=== PATIENT | female | born 1975 | race Caucasian/White ===

== ENCOUNTER 2017-05-22 11:44 | Emergency (ER) | payer MEDICAID ==
[~2017-05-22] VITALS: Ht 157.5 cm; Wt 49.5 kg
[~2017-05-22 11:44] MED LIST: DIPH25CA6 PO; PRED50TA PO; [UNRECOGNIZED DRUG - REMARK]
[2017-05-22 11:48] VITALS: Ht 157.5 cm; Wt 49.5 kg
[2017-05-22 13:26] LABS: BASOPHILS % 0.6 % (0.0-2.0); HEMATOCRIT 36.4 % (37.0-47.0); HEMOGLOBIN 12.3 g/dl (12.0-16.0); LYMPHOCYTES # 1.2 10^3/ul (0.8-2.9); LYMPHOCYTES % 18.3 % (15.0-51.0); MEAN CORPUSCULAR HEMOGLOBIN 28.5 pg (29.0-33.0); MEAN CORPUSCULAR HGB CONC 33.8 g/dl (32.0-37.0); MEAN CORPUSCULAR VOLUME 84.3 fl (82.0-101.0); MEAN PLATELET VOLUME 10.8 fl (7.4-10.4); MONOCYTE # 0.4 10^3/ul (0.3-0.9); MONOCYTES % 6.5 % (0.0-11.0); NEUTROPHILS % 74.3 % (39.0-77.0); PLATELET COUNT 223 10^3/UL (140-415); RED BLOOD COUNT 4.32 10^6/ul (4.20-5.40); RED CELL DISTRIBUTION WIDTH 13.1 % (11.5-14.5); WHITE BLOOD COUNT 6.8 10^3/ul (4.8-10.8)
[2017-05-22 13:32] LABS: ADD UMIC YES; UR ASCORBIC ACID 40 mg/dL (NEGATIVE); UR BACTERIA FEW /HPF (NONE SEEN); UR BILIRUBIN (Dip) NEGATIVE (NEGATIVE); UR BLOOD (Dip) NEGATIVE (NEGATIVE); UR CLARITY SLIGHTLY CLOUDY (CLEAR); UR COLOR YELLOW (YELLOW); UR GLUCOSE (Dip) NEGATIVE (NEGATIVE); UR KETONES (Dip) 2+ mg/dL (NEGATIVE); UR LEUKOCYTE ESTERASE (Dip) NEGATIVE Leu/ul (NEGATIVE); UR MUCUS MANY /HPF (NONE SEEN); UR NITRITE (Dip) NEGATIVE (NEGATIVE); UR RBC 2 /HPF (0-5); UR SPECIFIC GRAVITY (Dip) 1.032 (1.003-1.030); UR SQUAMOUS EPITHELIAL CELL FEW /HPF (FEW); UR TOTAL PROTEIN (Dip) 1+ mg/dl (NEGATIVE); UR UROBILINOGEN (Dip) NEGATIVE (NEGATIVE)
[2017-05-22 13:47] LABS: ANION GAP 17 (8-16); BLOOD UREA NITROGEN 16 mg/dl (7-20); CALCIUM 9.6 mg/dl (8.4-10.2); CARBON DIOXIDE 25 mmol/L (21-31); CHLORIDE 107 mmol/L (97-110); GLUCOSE 80 mg/dl (70-220); POTASSIUM 3.7 mmol/L (3.5-5.1); SODIUM 145 mmol/L (135-144)
[2017-05-22 14:00] LABS: TROPONIN-I < 0.012 ng/ml (0.00-0.12)
--- NOTE | 2017-05-22 14:09 | RADRPT ---
PROCEDURE: Chest x-ray CLINICAL INDICATION: Chest pain TECHNIQUE: Chest single view COMPARISON: None FINDINGS: The heart is normal in size. The pulmonary vessels are normal in caliber. The lungs are clear. Th e costophrenic angles are sharp. The visualized bony thorax is unremarkable. IMPRESSION: No acute cardiopulmonary disease. RPTAT: HH .Yung Gong MD, Date Time Electronically viewed and signed by .Yung Gong MD, MD on 05/22/2017 14:08 .W/
--- NOTE | 2017-05-22 14:18 | ERD ---
ER Documentation Chief Complaint Chief Complaint C/O CP/BACK PAIN AND DIZZINESS ON AND OFF X 1 WK. STATES SHE HAS ANXIETY HPI This is a 41-year-old female presenting to emergency department for chest pain, heart palpitations, back pain and dizziness 1 week. Patient states she has had increased stress at home and believes he has anxiety. Patient states she went yesterday to her primary care provider and a "thorough physical was done" and that everything was normal according to patient. Patient still believes she has anxiety and is requesting medication. No cough, shortness of breath or difficulty breathing. No fevers or chills. No chest pressure. ROS All systems reviewed and are negative except as per history of present illness. Medications Home Meds Active Scripts Diphenhydramine Hcl* (Diphenhydramine Hcl*) 25 Mg Capsule, 25 MG PO Q6 Y for ITCHING, #30 CAP Prov:SAMMY LÓPEZ PA-C 04/26/15 Prednisone* (Prednisone*) 50 Mg Tablet, 50 MG PO DAILY, #5 TAB Prov:SAMMY LÓPEZ PA-C 04/26/15 Reported Medications [Unk Med In White Bot] No Conflict Check 05/16/10 Allergies Allergies: Coded Allergies: No Known Allergy (Verified , 05/22/17) PMhx/Soc Medical and Surgical Hx: pt denies Medical Hx, pt denies Surgical Hx History of Surgery: No Anesthesia Reaction: No Hx Neurological Disorder: No Hx Respiratory Disorders: No Hx Cardiac Disorders: No Hx Psychiatric Problems: No Hx Miscellaneous Medical Probl: No Hx Alcohol Use: No Hx Substance Use: No Hx Tobacco Use: No Smoking Status: Never smoker Physical Exam Vitals Vital Signs Date Time Temp Pulse Resp B/P Pulse Ox O2 Delivery O2 Flow Rate FiO2 05/22/17 11:48 99.1 114 22 120/84 97 Physical Exam Const: Alert, smiling, cooperative Head: Atraumatic Eyes: Normal Conjunctiva ENT: Normal External Ears, Nose and Mouth. Neck: Full range of motion..~ No meningismus. Resp: Clear to auscultation bilaterally. No wheezing, rhonchi or crackles. No stridor or labored breathing. No intercostal retractions. Cardio: Regular rate and rhythm, no murmurs Abd: Soft, non tender, non distended. Normal bowel sounds Skin: No petechiae or rashes Back: No midline or flank tenderness Ext: No cyanosis, or edema Neur: Awake and alert Psych: Normal Mood and Affect Result Diagram: 05/22/17 1310 05/22/17 1310 Results 24 hrs Laboratory Tests Test 05/22/17 13:10 White Blood Count 6.810^3/ul Red Blood Count 4.3210^6/ul Hemoglobin 12.3g/dl Hematocrit 36.4% Mean Corpuscular Volume 84.3fl Mean Corpuscular Hemoglobin 28.5pg Mean Corpuscular Hemoglobin Concent 33.8g/dl Red Cell Distribution Width 13.1% Platelet Count 79351^3/UL Mean Platelet Volume 10.8fl Neutrophils % 74.3% Lymphocytes % 18.3% Monocytes % 6.5% Eosinophils % 0.0% Basophils % 0.6% Nucleated Red Blood Cells % 0.0/100WBC Neutrophils # 5.010^3/ul Lymphocytes # 1.210^3/ul Monocytes # 0.410^3/ul Eosinophils # 0.010^3/ul Basophils # 0.010^3/ul Nucleated Red Blood Cells # 0.010^3/ul Urine Color YELLOW Urine Clarity SLIGHTLY CLOUDY Urine pH 5.0 Urine Specific [place] 1.032 Urine Ketones 2+mg/dL Urine Nitrite NEGATIVEmg/dL Urine Bilirubin NEGATIVEmg/dL Urine Urobilinogen NEGATIVEmg/dL Urine Leukocyte Esterase NEGATIVELeu/ul Urine Microscopic RBC 2/HPF Urine Microscopic WBC 1/HPF Urine Squamous Epithelial Cells FEW/HPF Urine Bacteria FEW/HPF Urine Mucus MANY/HPF Urine Hemoglobin NEGATIVEmg/dL Urine Glucose NEGATIVEmg/dL Urine Total Protein 1+mg/dl Sodium Level 145mmol/L Potassium Level 3.7mmol/L Chloride Level 107mmol/L Carbon Dioxide Level 25mmol/L Anion Gap 17 Blood Urea Nitrogen 16mg/dl Creatinine 0.70mg/dl Glucose Level 80mg/dl Calcium Level 9.6mg/dl Troponin I < 0.012ng/ml Current Medications Medications (Trade) Dose Ordered Sig/Gavin Route PRN Reason Start Time Stop Time Status Last Admin Dose Admin Lorazepam (Ativan) 0.5 mg ONCE ONCE PO 05/22/17 14:30 05/22/17 14:31 DC 05/22/17 15:15 Procedures/[place] [id number] Radiology Main Line: [phone] DIAGNOSTIC IMAGING REPORT Patient: RICKY HODGES : 1975 Age: 41 Sex: F MR #: [id number] [facility] #: [id number] DOS: 05/22/17 1306 Ordering MD: SONIA MAN NP Location: [facility]TE Room/Bed: PROCEDURE: Chest x-ray CLINICAL INDICATION: Chest pain TECHNIQUE: Chest single view COMPARISON: None FINDINGS: The heart is normal in size. The pulmonary vessels are normal in caliber. The lungs are clear. The costophrenic angles are sharp. The visualized bony thorax is unremarkable. IMPRESSION: No acute cardiopulmonary disease. EKG: As interpreted by myself and Dr. Galicia Rate/Rhythm: Sinus tachycardia with heart rate 106 bpm QRS, ST, T-waves: No changes consistent w/ acute ischemia Impression: No evidence of ischemia or arrhythmia MDM: This is a 41-year-old female presenting to emerge department for chest pain , back pain, intermittent dizziness 1 week. Patient states she believes she has anxiety. EKG shows sinus tachycardia with heart rate 106 bpm. Negative for STEMI. CBC shows no significant anemia or infection. BMP shows no significant electrolyte imbalance. Troponin is negative. Chest x-ray reviewed by radiologist as no acute cardiopulmonary disease. Patient given Ativan p.o. while in the ED. Upon reassessment, patient states she is feeling better. Differential diagnosis includes but not limited to pneumonia, anxiety, bronchitis, pleurisy, costochondritis, gastroesophageal reflux,musculoskeletal chest pain and esophageal spasm. Low suspicion for acute coronary syndrome, pulmonary embolism, pneumothorax, aortic dissection and myocardial infarction. Patient is appropriate for outpatient management and will be discharged as stable. Instructed patient to follow up with primary care provider in the next 24-48 hours. Return to ED for worsening pain, abdominal pain, vomiting, diarrhea , high fever or any new or worsening symptoms. Patient verbalizes understanding. All questions answered at discharge. Disclaimer: Inadvertent spelling and grammatical errors are likely due to EHR/ dictation software use and do not reflect on the overall quality of patient care. Also, please note that the electronic time recorded on this note does not necessarily reflect the actual time of the patient encounter. Departure Diagnosis: Primary Impression: Anxiety Condition: Stable Patient Instructions: Your Body's Response to Anxiety, Anxiety Reaction Referrals: [facility] () Usted se nolasco hecho un examen mdico de control que le indica que no est en deborah condicin que requiera tratamiento urgente en el Departamento de Emergencia. Un estudio ms profundo y el tratamiento de conn condicin pueden esperar sin ningn riesgo hasta que usted sea atendida/o en el consultorio de conn mdico o deborah cl ricky. Es responsabilidad suya arreglar deborah negin para el seguimiento del susan. MANEJO DE CONDICIONES NO URGENTES EN EL FUTURO 1) Si usted tiene un mdico de atencin primaria: Usted debera llamar a conn mdico de atencin primaria antes de venir al departamento de emergencia. Despus de las horas de consultorio, conn doctor o conn asociado/a est disponible por telfono. El mdico o enfermero de skyler en el servicio telefnico puede asesorarle por ceci medio para atender el problema, o susan contrario se puede programar deborah negin. 2) Si usted no tiene un mdico de atencin primaria: Llame al mdico o clnica de referencia que aparece abajo blessing las horas de consultorio para hacer deborah negin para que le vean. CLINICAS: [facility] [phone] [facility] [phone] [facility] [phone] [facility] [phone] [facility] [phone] [facility]. [phone] [address] [facility] () Usted se nolasco hecho un examen mdico de control que le indica que no est en deborah condicin que requiera tratamiento urgente en el Departamento de Emergencia. Un estudio ms profundo y el tratamiento de conn condicin pueden esperar sin ningn riesgo hasta que usted sea atendida/o en el consultorio de conn mdico o deborah cl ricky. Es responsabilidad suya arreglar deborah negin para el seguimiento del susan. MANEJO DE CONDICIONES NO URGENTES EN EL FUTURO 1) Si usted tiene un mdico de atencin primaria: Usted debera llamar a conn mdico de atencin primaria antes de venir al departamento de emergencia. Despus de las horas de consultorio, conn doctor o conn asociado/a est disponible por telfono. El mdico o enfermero de skyler en el servicio telefnico puede asesorarle por ceci medio para atender el problema, o susan contrario se puede programar deborah negin. 2) Si usted no tiene un mdico de atencin primaria: Llame al mdico o condado institucions de referencia que aparece abajo blessing las horas de consultorio para hacer deborah negin para que le vean. SI USTED NO PUEDE PAGAR PARA CONSTANCE UN MEDICO puede ir a: [facility] [address] [place] [address] [facility] [address] [place] [address] [facility] [address] [place] [address] [facility] [address] [place] [place], [place] [id number] Additional Instructions: Llame al doctor MAANA y luciano deborah NEGIN PARA DENTRO DE 2-3 BOOTHE.Dgale a la secretaria que nosotros le instruimos hacer esta negin.Avise o llame si conn condicin se empeora antes de la negin. Regresa aqui si peor o no mejor. Vuelva a Ed para cualquier fiebre irving, dolor en el pecho, dificultad para respirar, respiracin entrecortada, sibilancias, vmitos, diarrea, dolor abdominal o cualquier sntoma nuevo o empeoramiento. SONIA ABRAHAM NP May 22, 2017 14:18
[2017-05-22] MEDS ORDERED: LORAZEPAM 0.5 MG TAB PO ONE (14:30)
== END 2017-05-22 15:21 | disposition home or self-care (01) ==
LOC: FTE 11:44
DX: F41.9 Anxiety disorder, unspecified (principal)
CPT/HCPCS: 36415; 71010; 80048; 81001; 84484; 85025; 93005; Z7502; Z7610

== ENCOUNTER 2017-05-28 09:16 | Emergency (ER) | payer MEDICAID ==
[~2017-05-28] VITALS: Ht 157.5 cm; Wt 49.5 kg
[2017-05-28 09:19] VITALS: Ht 157.5 cm; Wt 49.5 kg
[2017-05-28] MEDS ORDERED: BEN25 PO (11:00)
--- NOTE | 2017-05-28 18:15 | ERD ---
ER Documentation Chief Complaint Chief Complaint has been having insomnia x 1 week, feels weak HPI This is a 41-year-old female who presents to the emergency department today complaining of difficulty sleeping for the past several days. Patient states that she did not sleep for 3 days and then slept 1 night and again did not sleep last night. She has not taken any medication. She wants to know why she is not sleeping. Denies any headaches, dizziness, blurred vision, chest pain or shortness of breath. ROS All systems reviewed and are negative except as per history of present illness. Medications Home Meds Active Scripts Diphenhydramine Hcl* (Benadryl*) 25 Mg Cap, 25 MG PO Q6, #30 CAP Prov:LIVIER GAMBOA PA-C 05/28/17 Diphenhydramine Hcl* (Diphenhydramine Hcl*) 25 Mg Capsule, 25 MG PO Q6 Y for ITCHING, #30 CAP Prov:SAMMY LÓPEZ PA-C 04/26/15 Prednisone* (Prednisone*) 50 Mg Tablet, 50 MG PO DAILY, #5 TAB Prov:SAMMY LÓPEZ PA-C 04/26/15 Reported Medications [Unk Med In White Bot] No Conflict Check 05/16/10 Allergies Allergies: Coded Allergies: Penicillins (Verified Allergy, Intermediate, RASH, 05/28/17) PMhx/Soc Medical and Surgical Hx: pt denies Medical Hx, pt denies Surgical Hx History of Surgery: No Anesthesia Reaction: No Hx Neurological Disorder: No Hx Respiratory Disorders: No Hx Cardiac Disorders: No Hx Psychiatric Problems: No Hx Miscellaneous Medical Probl: No Hx Alcohol Use: No Hx Substance Use: No Hx Tobacco Use: No Smoking Status: Never smoker Physical Exam Vitals Vital Signs Date Time Temp Pulse Resp B/P Pulse Ox O2 Delivery O2 Flow Rate FiO2 05/28/17 09:19 97.6 80 18 121/70 100 Physical Exam Const: NAD Head: Atraumatic Eyes: Normal Conjunctiva ENT: Normal External Ears, Nose and Mouth. Neck: Full range of motion..~ No meningismus. Resp: Clear to auscultation bilaterally Cardio: Regular rate and rhythm, no murmurs Abd: Soft, non tender, non distended. Normal bowel sounds Skin: No petechiae or rashes Back: No midline or flank tenderness Ext: No cyanosis, or edema Neur: Awake and alert Psych: Normal Mood and Affect Procedures/MDM This is a 41-year-old female who presents to the emergency department today with complaints of insomnia for the past couple of days. Patient is afebrile and otherwise well-appearing. Her vital signs are stable and within normal limits. Upon review of patient's medical record she was seen on May 22, 2017 for reports of feeling his heart palpitations. Patient had admitted that she had had a physical at a clinic prior to that. Upon patient's last visit here to the emergency department 6 days ago patient had laboratory workup and EKG and a chest x-ray that were all negative. At this time I do not feel the patient requires further workup or imaging. I explained to the patient she needed to follow back up with her primary care doctor for referral to outpatient counseling or psychiatry. Patient was also given a list of free mental health clinics in the area. She was given a prescription for Benadryl. At this time the patient is stable for discharge and outpatient management. Patient should follow up with their PCP in the next 1-2 days. They may return to the emergency department sooner for any persistent or worsening of symptoms. Patient understood and agreed with the plan. Departure Diagnosis: Primary Impression: Insomnia Insomnia type: unspecified Qualified Code: G47.00 - Insomnia, unspecified type Condition: Fair Patient Instructions: Insomnia Referrals: your PCP RABIA ANDERSON,REE OBREGON MD,ESTHER LOZA,MARILU SHARMA,CAMILLE Fried PHD LUCIA PRYOR MD,SEBASTIAN MIJARES,ABBEY PEREIRA MD, HARKIRAT S. MD SCHNEIDER,NAVID CHAN Additional Instructions: Llame al doctor CHARITY y luciano deborah NEGIN PARA DENTRO DE 1-2 BOOTHE.Dgale a la secretaria que nosotros le instruimos hacer esta negin.Avise o llame si conn condicin se empeora antes de la negin. Regresa aqui si peor o no mejor. Make an appt at mental health clinic or follow-up with your primary care doctor for referral to psychiatry specialist. Take Benadryl as needed to help with sleeping LIVIER GAMBOA PA-C May 28, 2017 18:15
== END 2017-05-28 11:10 | disposition home or self-care (01) ==
LOC: FTE 09:16
DX: G47.00 Insomnia, unspecified (principal)
CPT/HCPCS: 99283